=== PATIENT | female | born 1950 | race Asian ===

== ENCOUNTER 2018-09-05 09:17 | Inpatient (IN) | payer MEDICARE ==
[~2018-09-05] VITALS: Ht 157.5 cm; Wt 68.2 kg
[2018-09-05] MEDS ORDERED: WARF3TAB29 PO (09:33)
[2018-09-05] MEDS ORDERED: LEVE500T53 PO (09:33)
[2018-09-05] MEDS ORDERED: ROPI1TAB11 PO (09:33)
[2018-09-05] MEDS ORDERED: SEVE800 PO (09:33)
[2018-09-05] MEDS ORDERED: FOLI1 PO (09:33)
[2018-09-05] MEDS ORDERED: ATOR10TA84 PO (09:33)
[2018-09-05 09:39] LABS: GLUCOSE,POINT OF CARE 100 MG/DL (70-110)
[2018-09-05 10:07] LABS: BASOPHILS % (AUTO) 0.6 % (0.0-2.0); CALCIUM, TOTAL 9.7 mg/dL (8.8-10.5); CREATININE 6.7 mg/dL (0.60-1.30); EOSINOPHILS % (AUTO) 2.3 % (1.0-6.0); HEMATOCRIT 29.9 % (36-46); HEMOGLOBIN 9.9 g/dL (12.0-16.0); LYMPHOCYTES # (AUTO) 0.4 K/uL (1.0-4.8); LYMPHOCYTES % (AUTO) 5.4 % (22.0-44.0); MEAN CORPUSCULAR HEMOGLOBIN 31.1 pg (26.0-34.0); MEAN CORPUSCULAR HGB CONC 33.2 G/dL (31.0-37.0); MEAN CORPUSCULAR VOLUME 94 fL (80-100); MONOCYTES % (AUTO) 13.9 % (2.0-9.0); NEUTROPHILS # (AUTO) 5.3 K/uL (1.8-7.7); NEUTROPHILS % (AUTO) 77.8 % (40.0-70.0); PLATELET COUNT (AUTO) 125 K/uL (150-450); POTASSIUM 5.5 mmol/L (3.5-5.1); RED BLOOD CELL COUNT(AUTO) 3.19 MIL/uL (4.00-5.20); RED CELL DISTRIBUTION WIDTH 19.1 % (11.5-14.5)
[2018-09-05 10:13] LABS: ALBUMIN 4.1 g/dL (3.4-5.0); BILIRUBIN,TOTAL 1.2 mg/dL (0.1-1.0); TOTAL PROTEIN, SERUM 7.4 g/dL (6.4-8.2)
[2018-09-05 12:10] LABS: INR 1.8 (0.9-1.1); PROTHROMBIN TIME 18.4 SEC (9.4-11.6)
[2018-09-05] MEDS ORDERED: FUROSEMIDE 40 MG/4 ML VIAL IVP ONE (13:00)
[2018-09-05 14:25] VITALS: BP 147/77
[2018-09-05] MEDS ORDERED: DEXTROSE 50%-WATER 25 GM/50 ML SYRINGE IVP PRN (15:45)
[2018-09-05 18:44] VITALS: BP 113/62
[2018-09-05] MEDS ORDERED: ACETAMINOPHEN 325 MG TABLET PO PRN (20:00)
[2018-09-05] MEDS ORDERED: BISACODYL 10 MG RECTAL RECTAL SUPPOSITORY PR PRN (20:00)
[2018-09-05] MEDS ORDERED: *CLINICAL-WARFARIN SODIUM DOSING CLINICAL ONE (20:00)
[2018-09-05] MEDS: FAMOTIDINE 20 MG TABLET PO SCH (20:21)
[2018-09-05] MEDS: ATORVASTATIN CALCIUM 20 MG TABLET PO SCH (20:21)
[2018-09-05] MEDS: LevETIRAcetam 500 MG TABLET PO SCH (20:21)
[2018-09-05] MEDS: DOCUSATE SODIUM 100 MG CAPSULE PO SCH (20:21)
[2018-09-05 20:35] LABS: GLUCOMETER DEV NAME(LOC) 5N.1; GLUCOSE,POINT OF CARE 92 MG/DL (70-110)
[2018-09-05] MEDS ORDERED: WARFARIN SODIUM-INR 2.5-3.5-RX DOSING PER PROTOCOL PO PRN (20:45)
[2018-09-05] MEDS ORDERED: WARFARIN SODIUM 3 MG TABLET PO ONE (20:45)
[2018-09-05 20:58] VITALS: BP 134/65
[2018-09-06 00:21] VITALS: BP 107/80
[2018-09-06 00:39] LABS: GLUCOMETER DEV NAME(LOC) 5N.2; GLUCOSE,POINT OF CARE 127 MG/DL (70-110)
[2018-09-06] MEDS: OxyCODONE HCL/ACETAMINOPHEN 5-325 MG TABLET PO PRN (02:00)
[2018-09-06 04:13] VITALS: BP 117/57
[2018-09-06 06:44] LABS: INFLUENZA TYPE A POSITIVE FOR TYPE A (NEGATIVE); INFLUENZA TYPE B NEGATIVE FOR TYPE B (NEGATIVE)
[2018-09-06 07:17] LABS: BASOPHILS % (AUTO) 0.4 % (0.0-2.0); EOSINOPHILS % (AUTO) 0.3 % (1.0-6.0); HEMATOCRIT 31.7 % (36-46); HEMOGLOBIN 10.1 g/dL (12.0-16.0); LYMPHOCYTES # (AUTO) 0.6 K/uL (1.0-4.8); LYMPHOCYTES % (AUTO) 9.1 % (22.0-44.0); MEAN CORPUSCULAR VOLUME 97 fL (80-100); MONOCYTES # (AUTO) 1.1 K/uL (0.1-1.0); NEUTROPHILS # (AUTO) 5.1 K/uL (1.8-7.7); NEUTROPHILS % (AUTO) 74.2 % (40.0-70.0); RED BLOOD CELL COUNT(AUTO) 3.27 MIL/uL (4.00-5.20); RED CELL DISTRIBUTION WIDTH 19.3 % (11.5-14.5)
[2018-09-06 07:19] LABS: INR 2.6 (0.9-1.1); PROTHROMBIN TIME 26.1 SEC (9.4-11.6)
[2018-09-06 07:34] VITALS: BP 119/69
[2018-09-06 07:38] LABS: % IRON SATURATION 9.8 % (22-44)
[2018-09-06 07:46] LABS: CREATININE 5.45 mg/dL (0.60-1.30); MAGNESIUM 2.3 mg/dL (1.80-2.40); PHOSPHORUS 6.7 mg/dL (2.5-4.9)
[2018-09-06] MEDS: DOCUSATE SODIUM 100 MG CAPSULE PO SCH ×2 (08:21→20:13)
[2018-09-06] MEDS: EPOETIN ALFA 10,000 UNITS/ML VIAL SQ SCH (08:21)
[2018-09-06] MEDS: LevETIRAcetam 500 MG TABLET PO SCH ×2 (08:21→20:13)
[2018-09-06] MEDS: SEVELAMER CARBONATE 800 MG TABLET PO SCH ×3 (08:21→17:15)
[2018-09-06] MEDS: FAMOTIDINE 20 MG TABLET PO SCH ×2 (08:21→20:13)
[2018-09-06 08:40] LABS: GLUCOMETER DEV NAME(LOC) 5N.2; GLUCOSE,POINT OF CARE 104 MG/DL (70-110)
[2018-09-06 09:12] LABS: PLATELET COUNT (AUTO) 95 K/uL (150-450)
[2018-09-06] MEDS ORDERED: 0.9% SODIUM CHLORIDE 5 ML NEB SOLUTION NEB ONE ×2 (09:42→20:09)
[2018-09-06] MEDS: ALBUTEROL SULFATE 2.5 MG/0.5 ML NEB SOLUTION NEB PRN (09:49)
[2018-09-06] MEDS ORDERED: IOVERSOL 320 MG/ML 100 ML VIAL ONE (11:21)
[2018-09-06 11:24] VITALS: BP 127/66
[2018-09-06] MEDS ORDERED: OSELTAMIVIR PHOSPHATE 75 MG CAPSULE PO PRN (13:15)
[2018-09-06] MEDS ORDERED: OSELTAMIVIR PHOSPHATE 75 MG CAPSULE PO ONE (13:30)
[2018-09-06] MEDS ORDERED: SODIUM CHLORIDE 0.9% 250 ML IV ONE (14:33)
[2018-09-06] MEDS: SOD FERRIC GLUC COMPLX/SUCROSE 125 MG in SODIUM CHLORIDE 0.9% 100 ML IV SCH (14:39)
[2018-09-06 15:29] VITALS: BP 99/70
[2018-09-06] MEDS ORDERED: WARFARIN SODIUM 1 MG TABLET PO ONE (17:00)
[2018-09-06] MEDS: MethylPREDNISolone SOD SUCC 125 MG/2 ML VIAL IVP SCH ×2 (17:15→23:36)
[2018-09-06] MEDS: ALBUTEROL SULFATE 2.5 MG/0.5 ML NEB SOLUTION NEB SCH ×2 (20:00→20:47)
[2018-09-06] MEDS: ATORVASTATIN CALCIUM 20 MG TABLET PO SCH (20:13)
[2018-09-06 20:15] VITALS: BP 151/74
[2018-09-07] VITALS (7 sets, daily range): BP systolic 106–145; BP diastolic 54–101
[2018-09-07] MEDS ORDERED: 0.9% SODIUM CHLORIDE 5 ML NEB SOLUTION NEB ONE ×4 (02:35→19:27)
[2018-09-07] MEDS: ALBUTEROL SULFATE 2.5 MG/0.5 ML NEB SOLUTION NEB SCH ×4 (02:41→19:56)
[2018-09-07] MEDS: MethylPREDNISolone SOD SUCC 125 MG/2 ML VIAL IVP SCH ×4 (05:30→23:05)
[2018-09-07] MEDS ORDERED: IOVERSOL 320 MG/ML 100 ML VIAL ONE (05:37)
[2018-09-07] MEDS ORDERED: SODIUM CHLORIDE 0.9% 100 ML ONE (05:38)
[2018-09-07] MEDS: INSULIN LISPRO 100 UNITS/ML SQ PRN ×2 (06:39→17:49)
[2018-09-07] MEDS ORDERED: SODIUM CHLORIDE 0.9% 2,000 ML IV ONE (07:45)
[2018-09-07] MEDS: SEVELAMER CARBONATE 800 MG TABLET PO SCH ×3 (08:00→17:48)
[2018-09-07] MEDS: OxyCODONE HCL/ACETAMINOPHEN 5-325 MG TABLET PO PRN (11:22)
[2018-09-07 11:45] LABS: GLUCOMETER DEV NAME(LOC) 5N.1; GLUCOSE,POINT OF CARE 133 MG/DL (70-110)
[2018-09-07 12:27] LABS: INR 2.5 (0.9-1.1); PROTHROMBIN TIME 25.4 SEC (9.4-11.6)
[2018-09-07] MEDS: OSELTAMIVIR PHOSPHATE 75 MG CAPSULE PO PRN (15:51)
[2018-09-07] MEDS: FAMOTIDINE 20 MG TABLET PO SCH ×2 (15:52→20:17)
[2018-09-07] MEDS: DOCUSATE SODIUM 100 MG CAPSULE PO SCH ×2 (15:52→20:17)
[2018-09-07] MEDS: -POST HEMODIALYSIS NOTE- MISC SCH (15:52)
[2018-09-07] MEDS: LevETIRAcetam 500 MG TABLET PO SCH ×2 (15:52→20:17)
[2018-09-07] MEDS: SOD FERRIC GLUC COMPLX/SUCROSE 125 MG in SODIUM CHLORIDE 0.9% 100 ML IV SCH (16:24)
[2018-09-07] MEDS: ALBUTEROL SULFATE 2.5 MG/0.5 ML NEB SOLUTION NEB PRN (16:30)
[2018-09-07] MEDS ORDERED: LIDOCAINE/PF 1% 2 ML VIAL INJ ONE (16:48)
[2018-09-07] MEDS ORDERED: WARFARIN SODIUM 1 MG TABLET PO ONE (17:00)
[2018-09-07] MEDS: ATORVASTATIN CALCIUM 20 MG TABLET PO SCH (20:17)
[2018-09-07 21:55] LABS: GLUCOMETER DEV NAME(LOC) 5N.2; GLUCOSE,POINT OF CARE 147 MG/DL (70-110)
[2018-09-07 21:55] LABS: GLUCOMETER DEV NAME(LOC) 5N.1; GLUCOSE,POINT OF CARE 159 MG/DL (70-110)
[2018-09-07 21:55] LABS: GLUCOMETER DEV NAME(LOC) 5N.2; GLUCOSE,POINT OF CARE 122 MG/DL (70-110)
[2018-09-07 21:55] LABS: GLUCOMETER DEV NAME(LOC) 5N.2; GLUCOSE,POINT OF CARE 182 MG/DL (70-110)
[2018-09-07 21:55] LABS: GLUCOMETER DEV NAME(LOC) 5N.1; GLUCOSE,POINT OF CARE 167 MG/DL (70-110)
[2018-09-07 21:55] LABS: GLUCOMETER DEV NAME(LOC) 5N.2; GLUCOSE,POINT OF CARE 215 MG/DL (70-110)
[2018-09-08] MEDS ORDERED: 0.9% SODIUM CHLORIDE 5 ML NEB SOLUTION NEB ONE ×4 (02:38→19:14)
[2018-09-08] MEDS: ALBUTEROL SULFATE 2.5 MG/0.5 ML NEB SOLUTION NEB SCH ×4 (02:48→19:37)
[2018-09-08 05:04] VITALS: BP 101/57
[2018-09-08] MEDS: MethylPREDNISolone SOD SUCC 125 MG/2 ML VIAL IVP SCH ×3 (05:44→18:14)
[2018-09-08 06:39] LABS: GLUCOMETER DEV NAME(LOC) 5N.1; GLUCOSE,POINT OF CARE 139 MG/DL (70-110)
[2018-09-08 07:36] VITALS: BP 117/92
[2018-09-08 07:42] LABS: INR 2.3 (0.9-1.1)
[2018-09-08] MEDS: LevETIRAcetam 500 MG TABLET PO SCH ×2 (09:06→20:00)
[2018-09-08] MEDS: EPOETIN ALFA 10,000 UNITS/ML VIAL SQ SCH (09:06)
[2018-09-08] MEDS: SEVELAMER CARBONATE 800 MG TABLET PO SCH ×3 (09:06→18:13)
[2018-09-08] MEDS: DOCUSATE SODIUM 100 MG CAPSULE PO SCH ×2 (09:06→20:00)
[2018-09-08] MEDS: FAMOTIDINE 20 MG TABLET PO SCH ×2 (09:06→20:00)
[2018-09-08] MEDS: -POST HEMODIALYSIS NOTE- MISC SCH (09:08)
[2018-09-08 11:32] VITALS: BP 99/53
[2018-09-08] MEDS ORDERED: MANNITOL 25%-12.5 GM/50 ML VIAL IVP ONE (12:00)
[2018-09-08] MEDS: INSULIN LISPRO 100 UNITS/ML SQ PRN ×3 (12:17→21:48)
[2018-09-08 14:53] VITALS: BP 106/56
[2018-09-08] MEDS: SOD FERRIC GLUC COMPLX/SUCROSE 125 MG in SODIUM CHLORIDE 0.9% 100 ML IV SCH (15:57)
[2018-09-08] MEDS ORDERED: WARFARIN SODIUM 1 MG TABLET PO ONE (17:00)
[2018-09-08 19:15] VITALS: BP 100/61
[2018-09-08] MEDS: ATORVASTATIN CALCIUM 20 MG TABLET PO SCH (20:00)
[2018-09-09] VITALS (9 sets, daily range): BP systolic 93–121; BP diastolic 50–68
[2018-09-09] MEDS: MethylPREDNISolone SOD SUCC 125 MG/2 ML VIAL IVP SCH ×5 (00:16→23:42)
[2018-09-09] MEDS: OxyCODONE HCL/ACETAMINOPHEN 5-325 MG TABLET PO PRN (02:24)
[2018-09-09] MEDS ORDERED: 0.9% SODIUM CHLORIDE 5 ML NEB SOLUTION NEB ONE ×4 (02:34→19:04)
[2018-09-09] MEDS: ALBUTEROL SULFATE 2.5 MG/0.5 ML NEB SOLUTION NEB SCH ×4 (02:44→20:00)
[2018-09-09] MEDS: INSULIN LISPRO 100 UNITS/ML SQ PRN ×4 (06:22→20:53)
[2018-09-09 06:24] LABS: GLUCOMETER DEV NAME(LOC) 5N.1; GLUCOSE,POINT OF CARE 201 MG/DL (70-110)
[2018-09-09 06:25] LABS: GLUCOMETER DEV NAME(LOC) 5N.1; GLUCOSE,POINT OF CARE 166 MG/DL (70-110)
[2018-09-09 06:25] LABS: GLUCOMETER DEV NAME(LOC) 5N.1; GLUCOSE,POINT OF CARE 170 MG/DL (70-110)
[2018-09-09 06:25] LABS: GLUCOMETER DEV NAME(LOC) 5N.1; GLUCOSE,POINT OF CARE 159 MG/DL (70-110)
[2018-09-09] MEDS ORDERED: SODIUM CHLORIDE 0.9% 2,000 ML IV ONE (07:59)
[2018-09-09] MEDS: SEVELAMER CARBONATE 800 MG TABLET PO SCH ×3 (08:00→18:26)
[2018-09-09 09:09] LABS: BASOPHILS % (AUTO) 0.1 % (0.0-2.0); EOSINOPHILS % (AUTO) 0 % (1.0-6.0); HEMATOCRIT 26.8 % (36-46); HEMOGLOBIN 8.8 g/dL (12.0-16.0); LYMPHOCYTES # (AUTO) 0.2 K/uL (1.0-4.8); LYMPHOCYTES % (AUTO) 2.2 % (22.0-44.0); MEAN CORPUSCULAR HEMOGLOBIN 30.9 pg (26.0-34.0); MEAN CORPUSCULAR HGB CONC 32.9 G/dL (31.0-37.0); MEAN CORPUSCULAR VOLUME 94 fL (80-100); MONOCYTES # (AUTO) 0.2 K/uL (0.1-1.0); MONOCYTES % (AUTO) 2.6 % (2.0-9.0); NEUTROPHILS # (AUTO) 8.4 K/uL (1.8-7.7); PLATELET COUNT (AUTO) 114 K/uL (150-450); RED BLOOD CELL COUNT(AUTO) 2.85 MIL/uL (4.00-5.20); RED CELL DISTRIBUTION WIDTH 17.5 % (11.5-14.5)
[2018-09-09 09:18] LABS: NEUTROPHILS % (AUTO) 95.1 % (40.0-70.0)
[2018-09-09 09:24] LABS: CALCIUM, TOTAL 8.5 mg/dL (8.8-10.5); CREATININE 5.49 mg/dL (0.60-1.30); INR 2.4 (0.9-1.1); POTASSIUM 4.8 mmol/L (3.5-5.1); PROTHROMBIN TIME 24.8 SEC (9.4-11.6)
[2018-09-09 09:29] LABS: ALBUMIN 3.8 g/dL (3.4-5.0); BILIRUBIN,TOTAL 0.8 mg/dL (0.1-1.0); TOTAL PROTEIN, SERUM 6.6 g/dL (6.4-8.2)
[2018-09-09] MEDS: DOCUSATE SODIUM 100 MG CAPSULE PO SCH ×2 (12:00→20:41)
[2018-09-09] MEDS: -POST HEMODIALYSIS NOTE- MISC SCH (12:00)
[2018-09-09] MEDS: OSELTAMIVIR PHOSPHATE 75 MG CAPSULE PO PRN (12:00)
[2018-09-09] MEDS: LevETIRAcetam 500 MG TABLET PO SCH ×2 (12:01→20:40)
[2018-09-09] MEDS: FAMOTIDINE 20 MG TABLET PO SCH ×2 (12:01→20:41)
[2018-09-09 12:29] LABS: GLUCOMETER DEV NAME(LOC) 5N.1; GLUCOSE,POINT OF CARE 156 MG/DL (70-110)
[2018-09-09] MEDS: SOD FERRIC GLUC COMPLX/SUCROSE 125 MG in SODIUM CHLORIDE 0.9% 100 ML IV SCH (13:05)
[2018-09-09] MEDS ORDERED: WARFARIN SODIUM 1 MG TABLET PO SCH (17:00)
[2018-09-09 17:50] LABS: GLUCOMETER DEV NAME(LOC) 5N.1; GLUCOSE,POINT OF CARE 165 MG/DL (70-110)
[2018-09-09] MEDS: ATORVASTATIN CALCIUM 20 MG TABLET PO SCH (20:40)
[2018-09-09 23:34] LABS: GLUCOMETER DEV NAME(LOC) 5N.2; GLUCOSE,POINT OF CARE 146 MG/DL (70-110)
[2018-09-10] MEDS ORDERED: 0.9% SODIUM CHLORIDE 5 ML NEB SOLUTION NEB ONE ×4 (01:48→21:04)
[2018-09-10] MEDS: ALBUTEROL SULFATE 2.5 MG/0.5 ML NEB SOLUTION NEB SCH ×4 (02:05→21:09)
[2018-09-10 04:13] VITALS: BP 119/54
[2018-09-10] MEDS: MethylPREDNISolone SOD SUCC 125 MG/2 ML VIAL IVP SCH ×5 (05:29→23:48)
[2018-09-10] MEDS: INSULIN LISPRO 100 UNITS/ML SQ PRN ×4 (05:32→20:53)
[2018-09-10 07:26] LABS: INR 2.9 (0.9-1.1); PROTHROMBIN TIME 29.6 SEC (9.4-11.6)
[2018-09-10 07:39] LABS: GLUCOMETER DEV NAME(LOC) 5N.1; GLUCOSE,POINT OF CARE 164 MG/DL (70-110)
[2018-09-10 07:46] VITALS: BP 107/77
[2018-09-10 08:09] LABS: ALBUMIN 3.8 g/dL (3.4-5.0); BILIRUBIN,TOTAL 0.8 mg/dL (0.1-1.0); CALCIUM, TOTAL 9.1 mg/dL (8.8-10.5); CREATININE 4.5 mg/dL (0.60-1.30); POTASSIUM 4.8 mmol/L (3.5-5.1); TOTAL PROTEIN, SERUM 6.6 g/dL (6.4-8.2)
[2018-09-10] MEDS: SEVELAMER CARBONATE 800 MG TABLET PO SCH ×3 (08:47→17:23)
[2018-09-10 08:59] LABS: BASOPHILS % (AUTO) 0.1 % (0.0-2.0); EOSINOPHILS % (AUTO) 0.3 % (1.0-6.0); HEMATOCRIT 27.3 % (36-46); HEMOGLOBIN 8.7 g/dL (12.0-16.0); LYMPHOCYTES # (AUTO) 0.2 K/uL (1.0-4.8); LYMPHOCYTES % (AUTO) 2.1 % (22.0-44.0); MEAN CORPUSCULAR HEMOGLOBIN 30.3 pg (26.0-34.0); MEAN CORPUSCULAR HGB CONC 31.8 G/dL (31.0-37.0); MEAN CORPUSCULAR VOLUME 95 fL (80-100); MONOCYTES # (AUTO) 0.5 K/uL (0.1-1.0); MONOCYTES % (AUTO) 5.4 % (2.0-9.0); NEUTROPHILS # (AUTO) 8.9 K/uL (1.8-7.7); PLATELET COUNT (AUTO) 121 K/uL (150-450); RED BLOOD CELL COUNT(AUTO) 2.86 MIL/uL (4.00-5.20); RED CELL DISTRIBUTION WIDTH 18.9 % (11.5-14.5)
[2018-09-10 09:01] LABS: NEUTROPHILS % (AUTO) 92.1 % (40.0-70.0)
[2018-09-10] MEDS: EPOETIN ALFA 10,000 UNITS/ML VIAL SQ SCH (09:30)
[2018-09-10] MEDS: LevETIRAcetam 500 MG TABLET PO SCH ×2 (09:30→20:25)
[2018-09-10] MEDS: DOCUSATE SODIUM 100 MG CAPSULE PO SCH ×2 (09:30→20:26)
[2018-09-10] MEDS: OSELTAMIVIR PHOSPHATE 75 MG CAPSULE PO PRN (09:30)
[2018-09-10] MEDS: PANTOPRAZOLE SODIUM 40 MG/VIAL IVP SCH (09:30)
[2018-09-10] MEDS: -POST HEMODIALYSIS NOTE- MISC SCH (09:30)
[2018-09-10 11:13] VITALS: BP 118/64
[2018-09-10] MEDS ORDERED: SODIUM CHLORIDE 0.9% 250 ML IV ONE (13:56)
[2018-09-10] MEDS: SOD FERRIC GLUC COMPLX/SUCROSE 125 MG in SODIUM CHLORIDE 0.9% 100 ML IV SCH (14:16)
[2018-09-10 16:17] VITALS: BP 117/54
[2018-09-10] MEDS: WARFARIN SODIUM 1 MG TABLET PO SCH (17:22)
[2018-09-10 19:39] LABS: GLUCOMETER DEV NAME(LOC) 5N.1; GLUCOSE,POINT OF CARE 217 MG/DL (70-110)
[2018-09-10 19:39] LABS: GLUCOMETER DEV NAME(LOC) 5N.2; GLUCOSE,POINT OF CARE 157 MG/DL (70-110)
[2018-09-10] MEDS: ATORVASTATIN CALCIUM 20 MG TABLET PO SCH (20:25)
[2018-09-10 20:29] VITALS: BP 114/59
[2018-09-10 20:29] LABS: GLUCOMETER DEV NAME(LOC) 5N.1; GLUCOSE,POINT OF CARE 190 MG/DL (70-110)
[2018-09-11] VITALS (7 sets, daily range): BP systolic 112–125; BP diastolic 46–61
[2018-09-11] MEDS ORDERED: 0.9% SODIUM CHLORIDE 5 ML NEB SOLUTION NEB ONE ×4 (01:43→20:37)
[2018-09-11] MEDS: ALBUTEROL SULFATE 2.5 MG/0.5 ML NEB SOLUTION NEB SCH ×4 (01:48→20:45)
[2018-09-11] MEDS: MethylPREDNISolone SOD SUCC 125 MG/2 ML VIAL IVP SCH ×3 (05:51→17:31)
[2018-09-11] MEDS: INSULIN LISPRO 100 UNITS/ML SQ PRN ×3 (05:56→20:42)
[2018-09-11 06:45] LABS: ALBUMIN 3.9 g/dL (3.4-5.0); BILIRUBIN,TOTAL 0.9 mg/dL (0.1-1.0); CALCIUM, TOTAL 9.3 mg/dL (8.8-10.5); CREATININE 6.25 mg/dL (0.60-1.30); POTASSIUM 5.5 mmol/L (3.5-5.1); TOTAL PROTEIN, SERUM 6.5 g/dL (6.4-8.2)
[2018-09-11 07:34] LABS: MAGNESIUM 2.2 mg/dL (1.80-2.40)
[2018-09-11] MEDS: SEVELAMER CARBONATE 800 MG TABLET PO SCH ×3 (08:57→18:00)
[2018-09-11] MEDS: DOCUSATE SODIUM 100 MG CAPSULE PO SCH ×2 (09:00→20:38)
[2018-09-11 09:15] LABS: HEMATOCRIT 28.1 % (36-46); HEMOGLOBIN 9.2 g/dL (12.0-16.0); MEAN CORPUSCULAR HEMOGLOBIN 30.9 pg (26.0-34.0); MEAN CORPUSCULAR HGB CONC 32.6 G/dL (31.0-37.0); MEAN CORPUSCULAR VOLUME 95 fL (80-100); PLATELET COUNT (AUTO) 172 K/uL (150-450); RED BLOOD CELL COUNT(AUTO) 2.97 MIL/uL (4.00-5.20); RED CELL DISTRIBUTION WIDTH 18.1 % (11.5-14.5)
[2018-09-11 09:25] LABS: INR 3.2 (0.9-1.1); PROTHROMBIN TIME 31.9 SEC (9.4-11.6)
[2018-09-11 09:52] LABS: BAND NEUTROPHILS % (MANUAL) 3 % (0-5); LYMPHOCYTES % (MANUAL) 7 % (22-44); MONOCYTES % (MANUAL) 6 % (2-9); SEGMENTED NEUTROPHILS % 84 % (40-70)
[2018-09-11] MEDS: LevETIRAcetam 500 MG TABLET PO SCH ×2 (09:54→20:38)
[2018-09-11] MEDS: PANTOPRAZOLE SODIUM 40 MG/VIAL IVP SCH (09:54)
[2018-09-11 11:59] LABS: GLUCOMETER DEV NAME(LOC) 5N.1; GLUCOSE,POINT OF CARE 182 MG/DL (70-110)
[2018-09-11] MEDS: WARFARIN SODIUM 1 MG TABLET PO SCH (15:36)
[2018-09-11] MEDS ORDERED: SODIUM CHLORIDE 0.9% 2,000 ML IV ONE (15:45)
[2018-09-11 17:15] LABS: GLUCOMETER DEV NAME(LOC) 5N.2; GLUCOSE,POINT OF CARE 178 MG/DL (70-110)
[2018-09-11 17:20] LABS: GLUCOMETER DEV NAME(LOC) 5N.1; GLUCOSE,POINT OF CARE 167 MG/DL (70-110)
[2018-09-11] MEDS: ATORVASTATIN CALCIUM 20 MG TABLET PO SCH (20:38)
[2018-09-11] MEDS: SOD FERRIC GLUC COMPLX/SUCROSE 125 MG in SODIUM CHLORIDE 0.9% 100 ML IV SCH (21:12)
[2018-09-12] MEDS ORDERED: 0.9% SODIUM CHLORIDE 5 ML NEB SOLUTION NEB ONE ×3 (03:04→14:52)
[2018-09-12] MEDS: ALBUTEROL SULFATE 2.5 MG/0.5 ML NEB SOLUTION NEB SCH ×3 (03:08→14:53)
[2018-09-12 04:39] VITALS: BP 108/48
[2018-09-12] MEDS: MethylPREDNISolone SOD SUCC 125 MG/2 ML VIAL IVP SCH ×3 (06:00→12:00)
[2018-09-12 06:55] LABS: GLUCOMETER DEV NAME(LOC) 5N.1; GLUCOSE,POINT OF CARE 109 MG/DL (70-110)
[2018-09-12 06:55] LABS: GLUCOMETER DEV NAME(LOC) 5N.2; GLUCOSE,POINT OF CARE 152 MG/DL (70-110)
[2018-09-12 07:48] VITALS: BP 104/55
[2018-09-12] MEDS: LevETIRAcetam 500 MG TABLET PO SCH (08:26)
[2018-09-12] MEDS: DOCUSATE SODIUM 100 MG CAPSULE PO SCH (08:26)
[2018-09-12] MEDS: SEVELAMER CARBONATE 800 MG TABLET PO SCH ×2 (08:26→12:21)
[2018-09-12] MEDS: PANTOPRAZOLE SODIUM 40 MG/VIAL IVP SCH (08:26)
[2018-09-12 11:26] VITALS: BP 105/49
[2018-09-12 11:59] LABS: HEMOGLOBIN 9.1 g/dL (12.0-16.0); MEAN CORPUSCULAR HEMOGLOBIN 31.2 pg (26.0-34.0); MEAN CORPUSCULAR HGB CONC 32.4 G/dL (31.0-37.0); MEAN CORPUSCULAR VOLUME 96 fL (80-100); PLATELET COUNT (AUTO) 180 K/uL (150-450); RED BLOOD CELL COUNT(AUTO) 2.91 MIL/uL (4.00-5.20); RED CELL DISTRIBUTION WIDTH 18.9 % (11.5-14.5)
[2018-09-12 12:15] LABS: INR 2.2 (0.9-1.1)
[2018-09-12 12:31] LABS: ALBUMIN 3.5 g/dL (3.4-5.0); BILIRUBIN,TOTAL 0.9 mg/dL (0.1-1.0); CALCIUM, TOTAL 8.8 mg/dL (8.8-10.5); CREATININE 4.16 mg/dL (0.60-1.30); POTASSIUM 4.2 mmol/L (3.5-5.1); TOTAL PROTEIN, SERUM 5.9 g/dL (6.4-8.2)
[2018-09-12 12:42] LABS: SEGMENTED NEUTROPHILS % 84 % (40-70)
[2018-09-12 12:43] LABS: BAND NEUTROPHILS % (MANUAL) 2 % (0-5); LYMPHOCYTES % (MANUAL) 6 % (22-44); MONOCYTES % (MANUAL) 8 % (2-9)
[2018-09-12] MEDS: SOD FERRIC GLUC COMPLX/SUCROSE 125 MG in SODIUM CHLORIDE 0.9% 100 ML IV SCH (14:00)
[2018-09-12 14:54] LABS: GLUCOMETER DEV NAME(LOC) 5N.1; GLUCOSE,POINT OF CARE 108 MG/DL (70-110)
[2018-09-12] MEDS ORDERED: ALBU6.7H IH (14:58)
[2018-09-12] MEDS ORDERED: PRED-572 PO (14:58)
[2018-09-12] MEDS ORDERED: PRED10TA3 PO (14:58)
[2018-09-12] MEDS ORDERED: WARFARIN SODIUM 2.5 MG TABLET PO SCH (17:00)
== END 2018-09-12 15:15 | disposition home or self-care (01) | DRG 280 ==
LOC: EMS 09:18 → 5N 11:10
PROVIDERS: ADMIT Internal Medicine; ATTEND Internal Medicine
PROC: 5A1D70Z Performance of Urinary Filtration, Intermittent, Less than 6 Hours Per Day (ICD-10-PCS; principal; 2018-09-05)
PROC: 5A1D70Z Performance of Urinary Filtration, Intermittent, Less than 6 Hours Per Day (ICD-10-PCS; 2018-09-07)
PROC: 5A1D70Z Performance of Urinary Filtration, Intermittent, Less than 6 Hours Per Day (ICD-10-PCS; 2018-09-09)
PROC: 5A1D70Z Performance of Urinary Filtration, Intermittent, Less than 6 Hours Per Day (ICD-10-PCS; 2018-09-11)
DX: I21.4 Non-ST elevation (NSTEMI) myocardial infarction (principal); N18.6 End stage renal disease; E43 Unspecified severe protein-calorie malnutrition; J96.90 Respiratory failure, unspecified, unspecified whether with hypoxia or hypercapnia; I13.2 Hypertensive heart and chronic kidney disease with heart failure and with stage 5 chronic kidney disease, or end stage renal disease; I50.30 Unspecified diastolic (congestive) heart failure; D64.9 Anemia, unspecified; E83.39 Other disorders of phosphorus metabolism; J09.X2 Influenza due to identified novel influenza A virus with other respiratory manifestations; E11.22 Type 2 diabetes mellitus with diabetic chronic kidney disease; E87.5 Hyperkalemia; I25.10 Atherosclerotic heart disease of native coronary artery without angina pectoris; Z95.1 Presence of aortocoronary bypass graft; Z95.2 Presence of prosthetic heart valve; Z99.2 Dependence on renal dialysis; Z68.27 Body mass index [BMI] 27.0-27.9, adult; Z88.6 Allergy status to analgesic agent; Z88.0 Allergy status to penicillin; Z88.8 Allergy status to other drugs, medicaments and biological substances; Z79.899 Other long term (current) drug therapy
CPT/HCPCS: 71260; 82271; 83540; 83550; 83735; 84100; 87081; 87340; 87804; 93005; 93306; 94640; 96374; C9113; G0378; J0885; J1940; J2150; J2916; J2930; J3490; J7030; J7050